=== PATIENT | female | born 1995 | race Caucasian/White ===

== ENCOUNTER 2021-10-07 20:05 | Emergency (ER) | payer BC ==
[~2021-10-07 20:05] MED LIST: Iopamidol 300 61% 100 ML VIAL FS ONE
[2021-10-07 20:25] LABS: Bilirubin Neg (Negative); Blood, Urine 250 (Negative); Clarity Cloudy (Clear); Glucose, Urine (Dipstick) Normal (Negative); Ketone, Urine Negative (Negative); Leukocyte 500 (Negative); Nitrite Negative (Negative); Protein, Urine (Dipstick) 100 mg/dl (Neg-Trace); Urobilinogen Normal mg/dL (Less than 2)
[2021-10-07 20:27] LABS: Pregnancy Test - Urine (BHCG) Negative (Negative); Pregu Control Background? CLEAR/WHITE (CLR/WHITE); Pregu Control Bar Appear? YES (CONTROL BAR)
[2021-10-07 20:35] LABS: Bacteria/HPF 1+ HPF (None Seen); Squamous Epithelial 0-3 HPF (0-3); WBC/HPF 21-50 HPF (0-3)
[2021-10-07] MEDS ORDERED: Ketorolac Tromethamine 30 MG/ML VIAL ONE (21:00)
[2021-10-07] MEDS ORDERED: Ondansetron PF 4 MG/2 ML Vial ONE (21:00)
[2021-10-07 21:22] LABS: #Eosinphils 0.3 10x3/uL (0.0-0.5); #Monocytes 0.7 10x3/uL (0.0-1.1); #Neutrophils 6.5 10x3/uL (1.5-8.4); %Basophils 0.2 % (0.0-2.0); %Eosinophils 3.4 % (0.0-6.0); %Lymphocytes 13.5 % (18.0-47.0); %Monocytes 8.2 % (0.0-10.0); %Neutrophils 74.5 % (40.0-75.0); Hemoglobin 13.1 g/dL (12.0-15.5); Mean Corpuscular HGB CONC 34.2 g/dL (32.0-36.0); Mean Corpuscular Hemoglobin 29.6 pg (27.0-33.0); Mean Corpuscular Volume 86.5 fl (81.6-98.3); Mean Platelet Volume 8.7 fl (7.4-10.4); Platelet Count 170 10x3/uL (150-450); RBC Distribution Width 12.4 % (11.5-14.5); Red Blood Cell (RBC) Count 4.43 10x6/uL (3.90-5.03); White Blood Cell (WBC) Count 8.8 10x3/uL (3.5-10.5)
[2021-10-07 21:30] LABS: ALT (SGPT) 18 U/L (8-55); AST (SGOT) 20 U/L (5-34); Albumin 4.4 g/dL (3.5-5.0); Alkaline Phosphatase 52 U/L (40-110); Anion Gap 12 mmol/L (10-20); BUN (Urea Nitrogen) 20 mg/dL (7.0-18.7); Bilirubin, Total 0.6 mg/dL (0.2-1.2); Calc. Creatinine Clearance 0 mL/min (70-130); Calcium 9.3 mg/dL (7.8-10.44); Carbon Dioxide 26 mmol/L (22-29); Chloride 103 mmol/L (98-107); Estimated GFR 89; Globulin 2.7 g/dL (2.4-3.5); Glucose 101 mg/dL (70-105); Lipase 12 U/L (8-78); Potassium 3.9 mmol/L (3.5-5.1); Protein, Total 7.1 g/dL (6.0-8.3); Sodium 137 mmol/L (136-145)
[2021-10-07] MEDS ORDERED: cefTRIAXone\\ROCEPHIN 1 GM VIAL ONE (21:34)
== END 2021-10-07 22:02 | disposition home or self-care (01) ==
LOC: CSHERS 20:05
DX: N10 Acute pyelonephritis (principal); J45.909 Unspecified asthma, uncomplicated; Z79.899 Other long term (current) drug therapy
CPT/HCPCS: 74177; 80053; 81003; 81015; 81025; 83690; 85025; 87077; 87086; 87186; 96365; 96375; J0696; J1885; J2405; Q9967